=== PATIENT | female | born 1945 | race Caucasian/White ===

== ENCOUNTER 2016-09-09 08:18 | Outpatient (CLI) ==
[2014-03-17 18:26] VITALS: BMI 37.5
[2016-09-09 14:43] LABS: BASOPHILS % (AUTO) 0.3 % (0.0-3.0); EOSINOPHILS # (AUTO) 0.1 K/ul (0.0-0.7); EOSINOPHILS % (AUTO) 1.1 % (0.0-7.0); HEMATOCRIT 40.6 % (37.0-47.0); HEMOGLOBIN 13.7 g/dl (12.0-16.0); IMMATURE GRANULOCYTE % (AUTO) 0.3 % (0.0-5.0); LYMPHOCYTES # (AUTO) 2.1 K/uL (0.60-3.4); LYMPHOCYTES % (AUTO) 19.3 (10.0-50.0); MEAN CORPUSCULAR HEMOGLOBIN 30.5 pg (27.0-31.0); MEAN CORPUSCULAR HGB CONC 33.7 (31.8-35.4); MEAN CORPUSCULAR VOLUME 90.4 fl (81.0-99.0); MONOCYTES # (AUTO) 0.5 K/uL (0.4-2.0); MONOCYTES % (AUTO) 4.3 (0-10); NEUTROPHILS # (AUTO) 8.3 K/ul (2.0-6.9); NEUTROPHILS % (AUTO) 74.7; PLATELET COUNT 210 10^3/uL (140-440); RED BLOOD COUNT 4.49 10^6/ul (4.20-5.40); WHITE BLOOD COUNT 11.06 K/ul (4.6-10.2)
[2016-09-09 14:51] LABS: BILIRUBIN,URINE Negative (NEGATIVE); KETONES,URINE Negative (NEGATIVE); LEUKOCYTE ESTERASE ,URINE 1+ (NEGATIVE); NITRITE,URINE Negative (NEGATIVE); PH,URINE 5.5 (5-9); PROTEIN,URINE Negative (NEGATIVE); URINE, BLOOD Trace-lysed (NEGATIVE)
[2016-09-09 14:52] LABS: ADD URINE MICROSCOPIC YES
[2016-09-09 14:57] LABS: ALBUMIN 3.9 g/dL (3.4-5.0); ALBUMIN/GLOBULIN RATIO 1.39; BILIRUBIN,TOTAL 0.84 mg/dL (0.00-1.20); BUN/CREATININE RATIO 22.85; CALCIUM 9.4 mg/dL (8.2-10.2); CHOL/HDL RATIO 4.6 (4.5-5.5); CREATININE 0.7 mg/dL (0.60-1.30); TOTAL PROTEIN 6.7 g/dL (5.8-8.1)
[2016-09-09 15:02] LABS: BACTERIA,URINE TRACE (NOT PRESENT)
== END 2016-09-09 08:19 | disposition home or self-care (01) ==
LOC: LAB 08:18
PROVIDERS: ATTEND General Practice
DX: E11.9 Type 2 diabetes mellitus without complications (principal); E78.5 Hyperlipidemia, unspecified; I10 Essential (primary) hypertension; Z79.899 Other long term (current) drug therapy; R82.90 Unspecified abnormal findings in urine
CPT/HCPCS: 36415; 80053; 80061; 81001; 83036; 85025; 87086

== ENCOUNTER 2016-10-05 09:08 | Outpatient (CLI) ==
[2014-03-17 18:26] VITALS: BMI 37.5
--- NOTE | 2016-10-05 10:00 | US ---
EXAM: Carotid ultrasound HISTORY: Other specified symptoms and signs involving the secretory and respiratory systems, hypert ension COMPARISON: None TECHNIQUE: Carotid ultrasound was performed using jack scale, color, and Doppler imaging was perfor med. FINDINGS: Right carotid: There is mild atherosclerotic plaque without significant visualized area of atherosc lerotic narrowing. Peak systolic velocity measurement in the right internal carotid artery is 0.9 m eters per second. End-diastolic velocity measurement in the right internal carotid artery is 0.3 me ters per second. Right internal to common carotid artery peak systolic velocity ratio is 1.3. Flow in the right vertebral artery is antegrade. Left carotid: There is mild atherosclerotic plaque without significant visualized area of atheroscl erotic narrowing. Peak systolic velocity measurement in the left internal carotid artery is 0.9 met ers per second. End-diastolic velocity measurement in the left internal carotid artery is 0.3 meter s per second. Left internal to common carotid artery peak systolic velocity ratio measures 1.0. Fl ow in the left vertebral artery is antegrade. IMPRESSION: 1. Right internal carotid: No evidence for greater than 50% stenosis 2. Left internal carotid: No evidence for greater than 50% stenosis
== END 2016-10-05 09:09 | disposition home or self-care (01) ==
LOC: RAD 09:08
PROVIDERS: ATTEND General Practice
DX: R09.89 Other specified symptoms and signs involving the circulatory and respiratory systems (principal)

== ENCOUNTER 2017-01-27 10:44 | Outpatient (CLI) ==
[2014-03-17 18:26] VITALS: BMI 37.5
[2017-01-27 12:23] LABS: BASOPHILS % (AUTO) 0.3 % (0.0-3.0); EOSINOPHILS # (AUTO) 0.1 K/ul (0.0-0.7); EOSINOPHILS % (AUTO) 2.1 % (0.0-7.0); HEMATOCRIT 40.6 % (37.0-47.0); HEMOGLOBIN 13.8 g/dl (12.0-16.0); IMMATURE GRANULOCYTE % (AUTO) 0.3 % (0.0-5.0); LYMPHOCYTES # (AUTO) 1.9 K/uL (0.60-3.4); MEAN CORPUSCULAR HEMOGLOBIN 30.3 pg (27.0-31.0); MONOCYTES # (AUTO) 0.4 K/uL (0.4-2.0); MONOCYTES % (AUTO) 5.6 (0-10); NEUTROPHILS # (AUTO) 4.2 K/ul (2.0-6.9); NEUTROPHILS % (AUTO) 63.7; PLATELET COUNT 206 10^3/uL (140-440); RED BLOOD COUNT 4.56 10^6/ul (4.20-5.40); WHITE BLOOD COUNT 6.61 K/ul (4.6-10.2)
[2017-01-27 12:29] LABS: BILIRUBIN,URINE Negative (NEGATIVE); KETONES,URINE Negative (NEGATIVE); LEUKOCYTE ESTERASE ,URINE 2+ (NEGATIVE); NITRITE,URINE Negative (NEGATIVE); PH,URINE 5.5 (5-9); PROTEIN,URINE Negative (NEGATIVE); URINE, BLOOD Negative (NEGATIVE)
[2017-01-27 12:38] LABS: ALBUMIN 3.9 g/dL (3.4-5.0); ALBUMIN/GLOBULIN RATIO 1.34; ANION GAP 15.9; BILIRUBIN,TOTAL 0.82 mg/dL (0.00-1.20); BUN/CREATININE RATIO 18.57; CALCIUM 9.2 mg/dL (8.2-10.2); CHOL/HDL RATIO 4.8 (4.5-5.5); CREATININE 0.7 mg/dL (0.60-1.30); POTASSIUM 3.9 mmol/L (3.5-5.10); TOTAL PROTEIN 6.8 g/dL (5.8-8.1)
[2017-01-27 12:44] LABS: ADD URINE MICROSCOPIC YES
[2017-01-27 12:54] LABS: BACTERIA,URINE 2+ (NOT PRESENT)
== END 2017-01-27 10:45 | disposition home or self-care (01) ==
LOC: LAB 10:44
PROVIDERS: ATTEND General Practice
DX: E78.5 Hyperlipidemia, unspecified (principal); E11.9 Type 2 diabetes mellitus without complications; I10 Essential (primary) hypertension; R31.29 Other microscopic hematuria; Z79.899 Other long term (current) drug therapy
CPT/HCPCS: 36415; 80053; 80061; 81001; 83036; 85025; 87086

== ENCOUNTER 2017-05-31 12:37 | Outpatient (CLI) ==
[2014-03-17 18:26] VITALS: BMI 37.5
[2017-05-31 13:10] LABS: ALBUMIN 3.7 g/dL (3.4-5.0); ALBUMIN/GLOBULIN RATIO 1.23; ANION GAP 15.1; BILIRUBIN,TOTAL 0.58 mg/dL (0.00-1.20); BUN/CREATININE RATIO 25.71; CALCIUM 9.4 mg/dL (8.2-10.2); CHOL/HDL RATIO 5.4 (4.5-5.5); CREATININE 0.7 mg/dL (0.60-1.30); POTASSIUM 4.1 mmol/L (3.5-5.10); TOTAL PROTEIN 6.7 g/dL (5.8-8.1)
[2017-05-31 13:12] LABS: BASOPHILS % (AUTO) 0.5 % (0.0-3.0); EOSINOPHILS # (AUTO) 0.2 K/ul (0.0-0.7); EOSINOPHILS % (AUTO) 2.6 % (0.0-7.0); HEMATOCRIT 41.6 % (37.0-47.0); HEMOGLOBIN 14.3 g/dl (12.0-16.0); IMMATURE GRANULOCYTE % (AUTO) 0.3 % (0.0-5.0); LYMPHOCYTES % (AUTO) 31.9 (10.0-50.0); MEAN CORPUSCULAR HEMOGLOBIN 30.8 pg (27.0-31.0); MEAN CORPUSCULAR HGB CONC 34.4 (31.8-35.4); MEAN CORPUSCULAR VOLUME 89.7 fl (81.0-99.0); MONOCYTES # (AUTO) 0.3 K/uL (0.4-2.0); MONOCYTES % (AUTO) 4.7 (0-10); NEUTROPHILS # (AUTO) 3.7 K/ul (2.0-6.9); PLATELET COUNT 193 10^3/uL (140-440); RED BLOOD COUNT 4.64 10^6/ul (4.20-5.40); WHITE BLOOD COUNT 6.18 K/ul (4.6-10.2)
[2017-05-31 13:18] LABS: BILIRUBIN,URINE Negative (NEGATIVE); KETONES,URINE Negative (NEGATIVE); LEUKOCYTE ESTERASE ,URINE 1+ (NEGATIVE); NITRITE,URINE Negative (NEGATIVE); PROTEIN,URINE Negative (NEGATIVE); URINE, BLOOD Negative (NEGATIVE)
[2017-05-31 13:29] LABS: ADD URINE MICROSCOPIC YES
== END 2017-05-31 12:38 | disposition home or self-care (01) ==
LOC: LAB 12:37
PROVIDERS: ATTEND General Practice
DX: E78.5 Hyperlipidemia, unspecified (principal); E11.9 Type 2 diabetes mellitus without complications; I10 Essential (primary) hypertension; R31.29 Other microscopic hematuria; Z79.899 Other long term (current) drug therapy
CPT/HCPCS: 36415; 80053; 80061; 81001; 83036; 85025; 87086

== ENCOUNTER 2017-09-20 09:43 | Outpatient (CLI) | payer OTHER ==
[2014-03-17 18:26] VITALS: BMI 37.5
== END 2017-09-20 09:44 | disposition home or self-care (01) ==
LOC: LAB 09:43
PROVIDERS: ATTEND General Practice
DX: E78.5 Hyperlipidemia, unspecified (principal); I10 Essential (primary) hypertension; E11.9 Type 2 diabetes mellitus without complications; Z79.899 Other long term (current) drug therapy
CPT/HCPCS: 36415; 80053; 80061; 81001; 83036; 85025; 87086

== ENCOUNTER 2018-01-17 09:36 | Outpatient (CLI) | payer OTHER ==
[2014-03-17 18:26] VITALS: BMI 37.5
== END 2018-01-17 09:37 | disposition home or self-care (01) ==
LOC: FCC-LAB 09:36
PROVIDERS: ATTEND General Practice
DX: E78.5 Hyperlipidemia, unspecified (principal); I10 Essential (primary) hypertension; E11.9 Type 2 diabetes mellitus without complications; Z79.899 Other long term (current) drug therapy
CPT/HCPCS: 36415; 80053; 80061; 81001; 83036; 85025; 87086

== ENCOUNTER 2018-05-29 12:49 | Outpatient (CLI) | payer OTHER ==
[2014-03-17 18:26] VITALS: BMI 37.5
== END 2018-05-29 12:50 | disposition home or self-care (01) ==
LOC: RHC-LAB 12:49
PROVIDERS: ATTEND General Practice
DX: E78.5 Hyperlipidemia, unspecified (principal); E11.9 Type 2 diabetes mellitus without complications; I10 Essential (primary) hypertension; Z79.899 Other long term (current) drug therapy
CPT/HCPCS: 36415; 80053; 80061; 81001; 83036; 85025; 87086

== ENCOUNTER 2018-09-24 07:59 | Outpatient (CLI) | payer OTHER ==
[2014-03-17 18:26] VITALS: BMI 37.5
== END 2018-09-24 08:00 | disposition home or self-care (01) ==
LOC: RHC-LAB 07:59
PROVIDERS: ATTEND General Practice
DX: E78.5 Hyperlipidemia, unspecified (principal); E11.9 Type 2 diabetes mellitus without complications; I10 Essential (primary) hypertension; Z79.899 Other long term (current) drug therapy
CPT/HCPCS: 36415; 80053; 80061; 81001; 85025; 87086; 87186

== ENCOUNTER 2018-09-28 14:23 | Outpatient (CLI) | payer OTHER ==
[2014-03-17 18:26] VITALS: BMI 37.5
--- NOTE | 2018-09-28 15:00 | US ---
EXAM: Ultrasound of the soft tissue neck. History: Left neck mass. Technique: Multiple sonographic images through the soft tissue neck were obtained. Color duplex Dop pler was used to interrogate vascular flow. Findings: No masses, cystic fluid collections identified. Impression: No sonographic abnormalities
== END 2018-09-28 14:24 | disposition home or self-care (01) ==
LOC: RAD 14:23
PROVIDERS: ATTEND General Practice
DX: R22.1 Localized swelling, mass and lump, neck (principal)

== ENCOUNTER 2019-01-29 08:15 | Outpatient (CLI) ==
[2014-03-17 18:26] VITALS: BMI 37.5
== END 2019-01-29 08:16 | disposition home or self-care (01) ==
LOC: LAB 08:15
PROVIDERS: ATTEND General Practice
DX: E11.9 Type 2 diabetes mellitus without complications (principal); I10 Essential (primary) hypertension; Z79.899 Other long term (current) drug therapy
CPT/HCPCS: 36415; 80053; 80061; 81001; 83036; 85025; 87086